=== PATIENT | male | born 1965 | race Caucasian/White ===

== ENCOUNTER → 2024-01-10 08:07 | Outpatient (REF) | payer BC, SELFPAY | LOC: RCS 08:07 | PROVIDERS: ATTENDING PHYSICIAN Surgery; FAMILY PHYSICIAN Nurse Practitioner; REFERRING PHYSICIAN Nurse Practitioner | DX: I42.8 Other cardiomyopathies (principal); K43.2 Incisional hernia without obstruction or gangrene | CPT/HCPCS: 74177; 93306; Q9967 ==

== ENCOUNTER 2024-05-27 06:26 | Day surgery (SDC) | payer BC, SELFPAY ==
[2024-05-22 09:48] LABS: Hematocrit 46.3 % (39.0-52.0); Hemoglobin 15.7 g/dL (13.0-18.0); Mean Corp Hgb Conc. 33.9 g/dL (33.0-37.0); Mean Corpuscular Hgb 29.2 pg (27.0-31.0); Mean Corpuscular Volume 86.1 fL (80.0-94.0); Mean Platelet Volume 12.4 fL (7.4-10.4); Platelet Count 169 10^3/uL (130-400); Red Blood Cell Count 5.38 10^6/uL (4.70-6.10); Red Cell Dist. Width 12.9 % (11.5-14.5); White Blood Cell Count 8.6 10^3/uL (4.8-10.8)
[2024-05-22 10:17] LABS: Blood Urea Nitrogen 18 mg/dl (9-20); Calcium 9.6 mg/dl (8.4-10.2); Carbon Dioxide 23 mmol/L (22-30); Chloride 101 mmol/L (98-107); Glucose 144 mg/dl (70-99); Potassium 4.4 mmol/L (3.5-5.1); Sodium 135 mmol/L (135-145); eGFR > 60.00
[2024-05-22 13:43] VITALS: BMI 27.9
[2024-05-27] VITALS (11 sets, daily range): BP systolic 111–137; BP diastolic 61–82; BMI 27.9; BMI 27.5
[2024-05-27 11:12] LABS: Glucose - Point of Care 163 mg/dl (70-99)
[2024-05-27] MEDS: NORMOSOL-R/PLASMALYTE-A 1000 IV ×2 (11:31→17:42)
[2024-05-27] MEDS: TYLENOL 1000 MG PO (11:32)
--- NOTE | 2024-05-27 15:21 | W.IMMPOSTOP ---
Surgical Immed Post Op Note
-
Primary Surgeon: Ishaan
Assisting Surgeon: ISSA Saucedo
Pre-op Diagnosis: Ventral incisional hernia
Post-op Diagnosis: Ventral incisional hernia
Procedure Performed: Robotic ventral incisional hernia repair with mesh
Anesthesia Type: General
Specimen / Cultures: None
Estimated Blood Loss: 3 cc
Complications: None
Operative Findings:
1. Multiple small [place] cheese defects at epigastrium and umbilicus containing fat, largest fascial defect 1.5 cm
2. Primary closure with #[address] PDS
[address] 18 x 23 cm mesh, preperitoneal, few small holes in peritoneum 95% of mesh covered
--- NOTE | 2024-05-27 15:40 | SUR.PHASEI ---
Rec'd in bed awake, oriented x 3 by RN, monitor looks SA with bbb, denies c/o
[2024-05-27 15:50] LABS: Glucose - Point of Care 156 mg/dl (70-99)
--- NOTE | 2024-05-27 15:53 | SUR.PHASEI ---
Awake and alert, vss, pt questioning admission, reassured
[2024-05-27] MEDS: DILAUDID 0.25 MG IV (15:58)
[2024-05-27] MEDS: TYLENOL PO ×2 (16:00→23:18)
--- NOTE | 2024-05-27 16:03 | SUR.PHASEI ---
Gavin castañeda well, reassured encouraged to sleep
--- NOTE | 2024-05-27 16:19 | SUR.PHASEI ---
Pt spoke to daughters, is willing to stay, encouraged to sleep, vss, ekg compares to one in chart
--- NOTE | 2024-05-27 16:32 | SUR.PHASEI ---
Sleeping vss, IV infusing well, awaiting room, pt has cell phone, spoke with daughters
[2024-05-27] MEDS: COREG 25 MG PO (20:06)
[2024-05-27] MEDS: TYLENOL 650 MG PO (20:06)
[2024-05-27] MEDS: DILAUDID 0.5 MG IV (23:17)
[2024-05-28] MEDS: TYLENOL 650 MG PO ×2 (03:19→07:41)
[2024-05-28 03:20] VITALS: BP 129/65
[2024-05-28 06:00] VITALS: BMI 27.5
--- NOTE | 2024-05-28 06:45 | W.PN.GS2 ---
Today's Communication / Plan
-
-- DC today
Assessment / Plan
-
Patient is a 58 yo M POD#1 s/p robotic ventral incisional hernia repair with mesh
AVSS
Recovering well. Pain well-controlled. No major postoperative concerns.
-- Regular diet
-- Pain control: Tylenol, Toradol, Oxycodone, IV Dilaudid PRN
-- HLIV
-- Home meds
-- DVT: Lovenox
-- DC today
Subjective Data
-
Date of Service: May 28, 2024
Reports soreness, but overall pain well-controlled. No nausea or vomiting. Passing flatus. No fevers.
Objective Data
-
Intake and Output
05/26/24 05/27/24 05/28/24
06:59 06:59 06:59
Intake Total 1580 / 1580
Output Total 1400 / 1400
Balance 180 / 180
Intake:
Oral fluids 480 / 480
IV fluids (Total) 1100 / 1100
normosol 100 / 100
Output:
Urine, Voided 1400 / 1400
Vital Signs
Temp Pulse Resp BP Pulse Ox
98.1 F 66 16 129/65 95
05/28/24 03:20 05/28/24 03:20 05/28/24 03:20 05/28/24 03:20 05/28/24 03:20
Lab Results
05/22/24 07:26
05/22/24 07:26
Calcium 9.6 mg/dl (8.4-10.2) 05/22/24 07:26
Physical Exam
-
Gen: NAD
Abd: soft, minimal tenderness, ND, non-peritoneal, incisions c/d/i - no erythema, ecchymosis or drainage, binder replaced
Patient has a burch catheter: No
Patient has a central line: No
[2024-05-28 07:25] VITALS: BP 143/71
[2024-05-28] MEDS: ALDACTONE 25 MG PO (07:42)
[2024-05-28] MEDS: COREG 25 MG PO (07:42)
[2024-05-28] MEDS: NORVASC 10 MG PO (07:43)
[2024-05-28] MEDS: FARXIGA 10 MG PO (07:43)
--- NOTE | 2024-05-28 13:01 | CM ---
Cm reviewed medical records. NO needs.
PLAN: No needs.
== END 2024-05-28 09:45 | disposition home or self-care (01) ==
LOC: SDS 06:26
PROVIDERS: ATTENDING PHYSICIAN Surgery; FAMILY PHYSICIAN Internal Medicine
DX: K43.2 Incisional hernia without obstruction or gangrene (principal)
CPT/HCPCS: 49591; 36415; 80048; 82962; 85027; C1713